=== PATIENT | male | born 1980 | race Two or more races ===

== ENCOUNTER 2019-02-19 10:15 | Emergency (ER) | payer OTHER ==
[~2019-02-19] VITALS: Ht 167.6 cm; Wt 99.8 kg
[~2019-02-19 10:15] MED LIST: HYDACE5 PO; IBUP800 PO; Norco 5-325 Ta1 EACH PO
== END 2019-02-19 11:24 | disposition home or self-care (01) ==
LOC: ER 10:15
DX: T20.50XA Corrosion of first degree of head, face, and neck, unspecified site, initial encounter (principal); T32.0 Corrosions involving less than 10% of body surface
CPT/HCPCS: 99283